=== PATIENT | male | born 1985 | race Caucasian/White ===

== ENCOUNTER 2016-09-01 09:56 | Day surgery (SDC) | payer OTHER ==
[2016-09-01] MEDS ORDERED: PEPCID ONE (10:22)
[2016-09-01] MEDS ORDERED: LR 1,000 ML ONE (10:23)
[2016-09-01] MEDS ORDERED: REGLAN ONE (10:23)
[2016-09-01] MEDS ORDERED: KEFZOL 2 GM/D5W 50 ML ONE (10:23)
[2016-09-01] MEDS ORDERED: VALIUM ONE (10:31)
[2016-09-01] MEDS ORDERED: MARCAINE 0.5% PF ONE (14:31)
[2016-09-01] MEDS ORDERED: XYLOCAINE 1% ONE (14:31)
[2016-09-01] MEDS ORDERED: FENTANYL ONE (15:04)
[2016-09-01] MEDS ORDERED: DILAUDID ONE (15:04)
[2016-09-01] MEDS ORDERED: DIPRIVAN 1% ONE (15:05)
[2016-09-01] MEDS: MORPHINE ONE ×2 (16:25→16:30)
[2016-09-01] MEDS ORDERED: MORPHINE ONE (16:39)
[2016-09-01] MEDS ORDERED: PERCOCET-5 ONE (16:58)
[2016-09-01 18:17] VITALS: BP 155/95
--- NOTE | 2016-09-01 18:40 | OPERATIVE NOTE ---
PROCEDURE DATE: 09/01/2016 PREOPERATIVE DIAGNOSES: 1. Left nonunion distal radius fracture. 2. Left broken painful hardware. POSTOPERATIVE DIAGNOSIS: 1. Left partial union/malunion distal radius fracture. 2. Left broken painful hardware. PROCEDURE: 1. Left wrist hardware removal (deep). 2. Left open reduction-internal fixation distal radius with a 22 modifier. 3. 22 modifier for difficult case. SURGEON: Aric Peace MD CONTENT ENGINEER: ALBERT Mcconnell. ANESTHESIA: General with LMA. TOURNIQUET TIME: Around 90 minutes. IMPLANTS: 1. Synthes ViviGen bone graft. 2. Synthes distal radial shaft plate and screws. DISPOSITION: To PACU, hemodynamically stable. INDICATION FOR PROCEDURE: Mr. Elgin London is a 31-year-old male who I performed open reduction-internal fixation on his distal radius back in May. He showed up for his 1st postop visit, but he did not show up for his clinic visits in June, July and he showed up at the end of August with his plate broken and his distal radius very deformed. He denies any injury at all to it, but it is hard to say when exactly it happened. He says it just sort of happened, so I discussed with him about taking the hardware out and revising it to a little bit stronger plate and putting bone graft in there to try to stimulate some healing. I went over with him the procedure, risks, benefits, and potential complications. He expressed understanding and wished to proceed. DETAILS OF OPERATION: Mr. London was identified in the preoperative holding area. The left upper extremity was marked as correct surgical site. He was wheeled to the operating room, placed supine on the operating table. All bony prominences well padded. He was induced under general anesthesia. LMA was placed. Tourniquet was placed on the left arm. Left upper extremity was then prepped with chlorhexidine, gluconate scrub and then ChloraPrep, and draped in normal sterile fashion. Surgical pause was performed. We identified the correct patient, the correct side, and the correct procedure. Preop antibiotics were given which was 2 g IV Ancef. I started with an incision through his previous incision. Dissection was carried down. He had a lot of scar tissue there in the front, and the anatomy was not quite normal at this point. His flexor carpi muscle belly was very distal, but we were able to retract it out of the way. We did visualize his median nerve and it was intact and we protected it throughout the entire case. Identified his flexor tendons as well and retracted those and protected them throughout the case. I was able to come down to the pronator quadratus muscle onto the plate, took the 3 screws out of the proximal part of the plate and took that plate out and then came distally and removed all those distal locking pegs and then took that distal tip of the plate out, and that finished our hardware removal. Looking down at his fracture, there was actually some pretty mature callus that was there which signified that it had been in this position for quite a long time. It definitely was not fresh. There was no hematoma at all present, but there was a lot of callus, so I ended up having to break through a lot of the callus, followed the fracture line that went down and break it all up so that we could get a very good reduction. He was very scarred down and so it was very difficult to end up getting a good reduction because it kept wanting to fall off dorsally at the joint line on that lateral view. So I worked about a good 30-40 minutes really trying to break up that callus, going all the way through to that dorsal aspect. I went until I really got everything freed up like we needed it. I tried some temporary fixation with some K-wires, but they did not quite hold well enough. I decided then to use the Synthes distal radial shaft plate because it was thicker and very robust and we could hopefully help get correction by using the plate. So it took a while to get that position like we would like it still because the radial shaft kept wanting to deviate ulnarly, and then the distal radial piece kept wanting to deviate dorsally, but we ended up getting it in very good position. I put the plate on and I secured it distally with the plate a little off bone proximally. I did some nonlocking screws 1st to really suck the plate down to the bone and then 2 locking screws in the middle to supplement and then I rocked that plate down so that I could get my volar tilt back, at least in neutral and I held it in place with a lobster claw clamp. Fluoroscopic this point fluoroscopic imaging showed that we had a good length and on the lateral view it looked like we had a neutral alignment on our volar tilt. So I then placed 3 screws proximally. They were cortical nonlocking screws and that actually held everything very nicely in position. I then came over at the fracture site, which there were some defects there medially and also centrally and I used the ViviGen bone graft and packed it into that whole fracture zone to stimulate a lot a good healing. I made sure not to get it up in the soft tissues, and then took 0 Vicryl and sewed that pronator quadratus back over the plate and over the bone grafts so that bone graft would not escape out into the other soft tissue. Once I did that, I then irrigated all the soft tissue very well. I made sure there were no bone fragments, especially around the median nerve and then I took some final images which showed we had a good length and on that lateral view good jainism of our volar tilt back to about neutral. There was a little bit of a dorsal spur since we ended having to swing that back up so much. I did think about taking that off but ended up not doing that secondary to I did not want to disrupt the blood supply to the dorsal aspect of that bone and strip it because we really need some good healing, and so for blood flow reasons, I did not end up making a dorsal incision and knocking off that piece of bone. Now, once he heals up, if that does bother him, we could always come back and shaved that down, but I wanted to maximize our potential for healing since this did not heal the first time. Then we closed the subcutaneous layer 2-0 Vicryl, and the skin with nylon, Adaptic, 4x4s, ABD, soft roll and a volar splint was applied. Tourniquet was let down. Patient had good capillary refill return to the fingers. Patient was then wheeled from general anesthesia, moved to his own bed and taken to the PACU in stable condition. Postoperatively, patient will be nonweightbearing left upper extremity and I will see him in 2 weeks in clinic.
[2016-09-02] MEDS ORDERED: LR 1,000 ML ONE (09:48)
[2016-09-02] MEDS ORDERED: XYLOCAINE-MPF 2% ONE (09:48)
== END 2016-09-01 17:45 | disposition home or self-care (01) ==
LOC: OPS 09:56
PROVIDERS: ATTEND Orthopaedic Surgery
DX: T84.113A Breakdown (mechanical) of internal fixation device of bone of left forearm, initial encounter (principal); S52.502P Unspecified fracture of the lower end of left radius, subsequent encounter for closed fracture with malunion; F17.210 Nicotine dependence, cigarettes, uncomplicated
CPT/HCPCS: 76000; J0690; J1170; J2270; J3010; J7120; S0020